=== PATIENT | male | born 1955 | race Native Hawaiian/Other Pacific Islander ===

== ENCOUNTER 2016-06-25 17:44 | Emergency (ER) | payer OTHER ==
[~2016-06-25] VITALS: Ht 185.4 cm; Wt 77.1 kg
== END 2016-06-25 20:40 | disposition home or self-care (01) ==
LOC: ED 17:44
DX: L03.115 Cellulitis of right lower limb (principal); L02.415 Cutaneous abscess of right lower limb
CPT/HCPCS: 99282

== ENCOUNTER 2016-06-28 10:38 | Emergency (ER) | payer OTHER ==
[~2016-06-28] VITALS: Ht 185.4 cm; Wt 77.1 kg
[2016-06-28] MEDS ORDERED: ENDOCET1 TAB PO (11:06)
[2016-06-28 11:30] LABS: PLATELET COUNT 911 K/uL (142-355)
== END 2016-06-28 12:59 | disposition home or self-care (01) ==
LOC: ED 10:38
DX: I83.018 Varicose veins of right lower extremity with ulcer other part of lower leg (principal); L97.819 Non-pressure chronic ulcer of other part of right lower leg with unspecified severity; D47.3 Essential (hemorrhagic) thrombocythemia
CPT/HCPCS: 36415; 85027; 87070; 87077; 87185; 87186; 87205; 99283